=== PATIENT | female | born 1965 | race Caucasian/White ===

== ENCOUNTER 2016-09-09 13:52 | Emergency (ER) | payer OTHER ==
--- NOTE | 2016-09-09 14:43 | ED ---
Extremity Problem HPI - General Chief complaint: Extremity Problem,Nontraumatic Stated complaint: Dr Sent/Lump behind knee Time Seen by Provider: 09/09/16 14:10 Source: patient, RN notes reviewed Mode of arrival: ambulatory Limitations: no limitations - History of Present Illness Initial comments: 51-year-old female presents emergency Department chief complaint right leg pain. Patient states that she's had some discomfort on her right knee over the last few days. Patient states that she has a family history of DVTs though she' s had no DVT herself. Patient states that seems to worse when she walks and seems to throb. She states that she feels a lump. Denies any calf pain no chest pain or shortness breath. - Related Data Home Medications Medication Instructions Recorded Confirmed Aspirin EC [Ecotrin Low Dose] 81 mg PO HS 09/09/16 09/09/16 Estradiol Cream [Estrace Cream 1 gm VAGINAL MOTH 09/09/16 09/09/16 0.01%] Multivitamins, Thera [Multivitamin 1 tab PO DAILY 09/09/16 09/09/16 (formulary)] Allergies Allergy/AdvReac Type Severity Reaction Status Date / Time No Known Allergies Allergy Unverified 09/09/16 14:24 Review of Systems ROS Statement: Those systems with pertinent positive or pertinent negative responses have been documented in the HPI. ROS Other: All systems not noted in ROS Statement are negative. Past Medical History Past Medical History: No Reported History History of Any Multi-Drug Resistant Organisms: None Reported Additional Past Surgical History / Comment(s): left hand. carpal tunnel Past Psychological History: No Psychological Hx Reported Smoking Status: Former smoker Past Alcohol Use History: None Reported Past Drug Use History: None Reported General Exam Limitations: no limitations Respiratory exam: Present: normal lung sounds bilaterally. Absent: respiratory distress, wheezes, rales, rhonchi, stridor Cardiovascular Exam: Present: regular rate, normal rhythm, normal heart sounds. Absent: systolic murmur, diastolic murmur, rubs, gallop, clicks Extremities exam: Present: other (Right knee there is some swelling on the posterior aspect and the popliteal region there is minimal tenderness patient's full range of motion no laxity is no calf tenderness there is no erythema and pedal pulses are equal bilaterally +2) Course Vital Signs 09/09/16 09/09/16 14:02 14:30 Temperature 99.2 F 98.8 F Pulse Rate 86 79 Respiratory 20 17 Rate Blood Pressure 138/91 132/73 O2 Sat by Pulse 99 96 Oximetry Medical Decision Making - Medical Decision Making 51-year-old female presented for right leg pain. There is no evidence acute DVT or white cyst. Patient will be discharged at this time follow with PCP return parameters were discussed. Disposition Clinical Impression: Right leg pain Disposition: HOME SELF-CARE Condition: Stable Instructions: Leg Pain (ED) Additional Instructions: Please return to the Emergency Department if symptoms worsen or any other concerns. Referrals: Carmine Goncalves DO [Primary Care Provider] - 1-2 days Time of Disposition: 15:27
--- NOTE | 2016-09-09 15:49 | US ---
EXAMINATION TYPE: US venous doppler duplex LE RT DATE OF EXAM: 09/09/2016 2:54 PM COMPARISON: NONE CLINICAL HISTORY: 51-year-old female Pain, Lump behind right knee. SIDE PERFORMED: Right TECHNIQUE: The lower extremity deep venous system is examined utilizing real time linear array sonog dustin with graded compression, doppler sonography and color-flow sonography. FINDINGS: VESSELS IMAGED: External Iliac Vein (EIV) Common Femoral Vein Deep Femoral Vein Greater Saphenous Vein * Femoral Vein Popliteal Vein Small Saphenous Vein * Proximal Calf Veins (* superficial vessels) Right Leg: Negative for DVT No Madrigal's cyst or other discrete abnormality seen within the superficial soft tissues at posterior k nee, site of palpable lump. IMPRESSION: 1. No evidence for DVT within the right lower extremity imaged from the groin to the upper calf. 2. No Madrigal's cyst identified along the popliteal space at the site of patient's lump. If there is pe rsistence or enlargement of a palpable abnormality, further cross-sectional imaging may be warranted.
[2016-09-09 15:50] VITALS: BP 112/69; PULSE 83; RESP 20; TEMP 98.4
== END 2016-09-09 15:50 | disposition home or self-care (01) ==
LOC: EC 13:52
DX: M25.561 Pain in right knee (principal); M25.461 Effusion, right knee; Z87.891 Personal history of nicotine dependence; Z79.82 Long term (current) use of aspirin; Z79.3 Long term (current) use of hormonal contraceptives; Z79.899 Other long term (current) drug therapy; Z82.69 Family history of other diseases of the musculoskeletal system and connective tissue
CPT/HCPCS: 99283

== ENCOUNTER → 2017-12-17 | Outpatient (CLI) | payer OTHER ==
--- NOTE | 2018-01-19 11:51 | EM ---
EVENT MONITOR A 30-day event monitor. This study was performed between the date of December 17, 2017 until January 14, 2018. INDICATION OF THE STUDY: Palpitation. The patient was monitored for 4 weeks. The baseline rhythm appeared to be a sinus mechanism. During this 4 weeks of monitoring, the patient did have multiple episodes of paroxysmal atrial tachycardia. During these episodes, the patient was completely asymptomatic. There is no evidence of any ventricular tachycardia seen. There is no evidence of any sinus pause or sinus arrest seen. The patient did not report any symptoms as well. CONCLUSION: 1. This is a 4-week event monitor. 2. The baseline rhythm appeared to be a sinus rhythm. 3. The patient did have multiple episodes of paroxysmal atrial tachycardia. 4. During these episodes of paroxysmal atrial tachycardia, the patient was completely asymptomatic. MMODL / IJN: [id number] /
== END | disposition home or self-care (01) ==
LOC: RADECHMAIN 11:43
PROVIDERS: ATTEND Family Medicine
DX: I49.9 Cardiac arrhythmia, unspecified (principal)
CPT/HCPCS: 93270; 93271

== ENCOUNTER → 2018-02-10 | Outpatient (CLI) | payer OTHER ==
--- NOTE | 2018-02-10 13:40 | BD ---
EXAMINATION TYPE: Axial Bone Density DATE OF EXAM: 02/10/2018 COMPARISON: NONE CLINICAL HISTORY: 52 YR OLD FEMALE....ICD-10 CODE: Z78.0 POST MENOPAUSAL Height: 66 Weight: 221 FRAX RISK QUESTIONS: HX OF ADULT FRACTURE Secondary Osteoporosis: YES 3. Menopause before 45: YES AT AGE 28 Current Tobacco Use: STOPPED 10 YRS AGO RISK FACTORS HISTORY OF: HX OF LT RIB FXS AT 48 YRS OLD, AND BOTH ANKLE BREAKS IN HER 20s Family History of Osteoporosis: YES, HER FATHER Diet low in dairy products/other sources of calcium: YES Postmenopausal woman: YES AT AGE 28 YRS OLD Take estrogen and/or progesterone medications: IN PAST FOR 10 -15 YRS, LAST TAKEN 5 YRS AGO MEDICATIONS: Additional Medications: NOTHING TO NOTE Additional History: NOTHING TO NOTE EXAM MEASUREMENTS: Bone mineral densitometry was performed using the [employer] System. Bone mineral density as measured about the Lumbar spine is: ----- L1-L4(G/cm2): 1.465 T Score Values are as follows: ----- L1: 0.2 ----- L2: 1.1 ----- L3: 4.4 ----- L4: 3.2 ----- L1-L4: 2.4 Bone mineral density ....FIRST BONE DENSITY ....BASELINE STUDY Bone mineral density about the R hip (g/cm2): 1.035 Bone mineral density about the L hip (g/cm2): 1.043 T Score values are as follows: -----R Neck: -1.1 -----L Neck: -0.9 -----R Total: 0.2 -----L Total: 0.3 Bone mineral density BASELINE STUDY FRAX%s: THERE IS A 8.0% CHANCE FOR A MAJOR OSTEOPOROTIC FX AND A 0.4% FOR HIP.....PROBABILITY OF F X IN 10 YRS TIME IMPRESSION: Osteopenia (T Score between -2.5 and -1). There is slightly increased risk of fracture and the patient may be considered for treatment. Re-Screen 2-5 years. NOTE: T-SCORE=SD OF THE YOUNG ADULT MEAN.
--- NOTE | 2018-02-11 08:09 | MM ---
Reason for exam: screening (asymptomatic). Last mammogram was performed 2 years and 10 months ago. History: Patient is postmenopausal. Family history of breast cancer in maternal aunt. MG discontinued stereo core LT of the left breast, April 13, 2015. Taking estrogen for 10 years beginning at age 35. Physical Findings: A clinical breast exam by your physician is recommended on an annual basis and results should be correlated with mammographic findings. MG Screening Mammo w CAD Bilateral CC and MLO view(s) were taken. Prior study comparison: April 06, 2015, left breast MG 3d work up w/cad LT. April 04, 2015, bilateral MG screening mammo w CAD. There are scattered fibroglandular densities. There is no discrete abnormality. No significant changes when compared with prior studies. ASSESSMENT: Negative, BI-RAD 1 RECOMMENDATION: Routine screening mammogram of both breasts in 1 year.
== END ==
LOC: RADMAMWWP 09:20
PROVIDERS: ATTEND Family Medicine
DX: Z12.31 Encounter for screening mammogram for malignant neoplasm of breast (principal); M85.80 Other specified disorders of bone density and structure, unspecified site; Z78.0 Asymptomatic menopausal state
CPT/HCPCS: 77067; 77080

== ENCOUNTER → 2019-10-20 | Outpatient (CLI) | payer OTHER ==
--- NOTE | 2019-10-20 14:49 | EST ---
EXERCISE STRESS AGE: 54 SEX: F HT: 5'7" WT: 230 lbs. PROTOCOL: Ritesh STAGE: 3 DURATION OF EXERCISE: 9:16 HEART RATE REST: 59 BLOOD PRESSURE REST: 127/77 MAXIMUM HEART RATE ACHIEVED: 153 MAXIMUM BLOOD PRESSURE: 164/80 85% MPHR: 142 100% MPHR: 167 METS: 9.9 INDICATIONS: Hyperlipidemia, family history CLINICAL INFORMATION: @@ Baseline EKG shows sinus rhythm, normal axis, normal intervals. Patient exercised on Ritesh protocol for a total of 8 minutes achieving 9 METS, 92% of predicted maximal heart rate without chest pain. At peak exercise, there was 0.[address]-segment depression noted with occasional PVCs. CONCLUSION: 1. Above-average exercise tolerance. 2. Nondiagnostic EKG changes with exercise. 3. Occasional PVCs during exertion. MMODL / IJN: [id number] /
--- NOTE | 2019-10-21 11:37 | ECHOF ---
Referral Reason:E66.9 obesity/E85 hyperlipid MEASUREMENTS -------- HEIGHT: 171.4 cm WEIGHT: 104.3 kg BP: RVIDd: 3.0 cm (< 3.3) IVSd: 1.2 cm (0.6 - 1.1) LVIDd: 4.8 cm (3.9 - 5.3) LVPWd: 1.2 cm (0.6 - 1.1) IVSs: 1.8 cm LVIDs: 3.7 cm LVPWs: 1.6 cm LA Diam: 3.8 cm (2.7 - 3.8) LAESV Index (A-L): 22.85 ml/m Ao Diam: 3.5 cm (2.0 - 3.7) AV Cusp: 2.2 cm (1.5 - 2.6) MV EXCURSION: 10.412 mm (> 18.000) MV EF SLOPE: 53 mm/s (70 - 150) EPSS: 1.1 cm MV E Darek: 0.90 m/s MV DecT: 180 ms MV A Darek: 0.80 m/s MV E/A Ratio: 1.12 AR PHT: 2849 ms RAP: 5.00 mmHg RVSP: 26.73 mmHg FINDINGS -------- Sinus rhythm. This was a technically good study. The left ventricular size is normal. There is borderline concentric left ventricular hypertrophy. Overall left ventricular systolic function is normal with, an EF between 60 - 65 %. The right ventricle is normal in size. Normal LA size by volume 22+/-6 ml/m2. The right atrium is normal in size. Lipomatous Hypertrophy of the atrial septum is present Aortic valve is trileaflet and is mildly thickened. There is mild aortic regurgitation. The mitral valve is normal. Mild tricuspid regurgitation present. Right ventricular systolic pressure is normal at < 35 mmHg. CONCLUSIONS -------- 1. The left ventricular size is normal. 2. There is borderline concentric left ventricular hypertrophy. 3. Overall left ventricular systolic function is normal with, an EF between 60 - 65 %. 4. Lipomatous Hypertrophy of the atrial septum is present 5. Aortic valve is trileaflet and is mildly thickened. 6. There is mild aortic regurgitation. 7. Mild tricuspid regurgitation present. FULL STACK SOFTWARE DEVELOPER: Nhi Luis RDCS
== END | disposition home or self-care (01) ==
LOC: RADECHMAIN 08:33
PROVIDERS: ATTEND Family Medicine
DX: I08.2 Rheumatic disorders of both aortic and tricuspid valves (principal); Z82.49 Family history of ischemic heart disease and other diseases of the circulatory system
CPT/HCPCS: 93017; 93306

== ENCOUNTER → 2020-09-26 | Outpatient (CLI) | payer OTHER ==
--- NOTE | 2020-09-26 20:09 | XR ---
Right clavicle and right shoulder HISTORY: Trauma and pain 2 views of the right clavicle, 3 views of the right shoulder on 4 images There is arthropathy at the acromioclavicular joint. Bone mineralization, alignment are maintained. IMPRESSION: No fracture or dislocation of the right clavicle or shoulder.
--- NOTE | 2020-09-26 20:10 | XR ---
Lumbosacral spine HISTORY: Pain, trauma 5 views of lumbosacral spine There is a levoscoliosis centered at the mid lumbar spine. Lumbar vertebral bodies show preserved hei ght and bone mineralization. There is no evident spondylolysis. There is multilevel spondylosis. Mini mal retrolisthesis grade 1 L3-4, possibly L4-5. Loss of disc height is present at intervertebral leve ls with associated vacuum phenomenon greatest at L3-4 and L4-5. Sclerosis is present in the posterior elements of the lower lumbar spine. Atherosclerotic vascular calcifications present in the aortoilia c distribution. IMPRESSION: Degenerative disc disease and facet arthropathy. Mild spinal curvature, osteopenia.
== END | disposition home or self-care (01) ==
LOC: RADXRMAIN 15:16
PROVIDERS: ATTEND Family Medicine
DX: M25.511 Pain in right shoulder (principal); M54.2 Cervicalgia; M51.36 Other intervertebral disc degeneration, lumbar region; M85.80 Other specified disorders of bone density and structure, unspecified site
CPT/HCPCS: 72110

== ENCOUNTER → 2022-02-28 | Outpatient (CLI) | payer OTHER ==
--- NOTE | 2022-03-20 01:50 | EM ---
EVENT MONITOR 14-DAY EVENT MONITOR: Predominant rhythm appears to be sinus. There is a lot of artifact. There is a short run of 3 to 4 beats of PACs. No significant ventricular ectopy. No significant bradyarrhythmia. FINAL IMPRESSION: There was a lot of artifact. Predominant rhythm is sinus with 1 short run of PAT of about 3 to 4 beats. No ventricular ectopy and no bradyarrhythmia. MMCAL / JILLIANN: [id number] /
== END | disposition home or self-care (01) ==
LOC: RADECHMAIN 12:43
PROVIDERS: ATTEND Family Medicine
DX: R00.2 Palpitations (principal)
CPT/HCPCS: 93270

== ENCOUNTER → 2022-08-23 | Outpatient (CLI) | payer OTHER ==
--- NOTE | 2022-08-23 15:07 | CT ---
EXAMINATION TYPE: CT abdomen pelvis wo con DATE OF EXAM: 08/23/2022 COMPARISON: None HISTORY: 57-year-old female R14.0, Abdominal distension and pain, Hx endometrial tumor. CT DLP: 686.40 mGycm. Automated exposure control for dose reduction was used. TECHNIQUE: Contiguous axial scanning of the abdomen and pelvis without IV contrast. Coronal and sagit woodrow reconstructions performed. FINDINGS: LUNG BASES: No significant abnormality is appreciated. LIVER/GB: No significant abnormality is appreciated. PANCREAS: No significant abnormality is seen. SPLEEN: No significant abnormality is seen. ADRENALS: No significant abnormality is seen. KIDNEYS: No significant abnormality is seen. BOWEL: Small hiatal hernia. No dilated small bowel, free fluid, or free air. Appendix not seen. No se condary findings of acute appendicitis in the right lower quadrant. No significant stool burden. Oral contrast progressed into descending colon. Mild left-sided colonic diverticulosis. No pericolonic in flammatory change. LYMPH NODES: A few scattered nonenlarged retroperitoneal nodes measuring up to 9 mm are nonspecific. Otherwise, no significant abnormality is seen. OTHER: Nonspecific partially calcified 1.5 cm nodule along the lesser curvature of the stomach, proba matthew old post inflammatory sequela. Previous ventral abdominal wall mesh repair. PELVIS: Bladder urine distended. Uterus surgically absent. Left sided pelvic phlebolith. Neither ovar y is seen. No abnormal fluid collection in the pelvis. BONES: Mild degenerative change of the hips. Moderate to advanced degenerative disc disease L4-L5 and L3-L4. Facet arthropathy. Trace grade 1 retrolisthesis L3-L4 L4-L5. Degenerated levoconvex curvature is noted. IMPRESSION: 1. Status post hysterectomy and bilateral salpingo-oophorectomies. 2. Scattered left-sided colonic diverticulosis without evidence for acute diverticulitis. 3. Small hiatal hernia.
== END | disposition home or self-care (01) ==
LOC: RADCTMAIN 10:29
PROVIDERS: ATTEND Family Medicine
DX: K44.9 Diaphragmatic hernia without obstruction or gangrene (principal); K57.30 Diverticulosis of large intestine without perforation or abscess without bleeding; R14.0 Abdominal distension (gaseous); Z90.710 Acquired absence of both cervix and uterus
CPT/HCPCS: 74176

== ENCOUNTER → 2022-11-19 | Outpatient (CLI) | payer OTHER ==
--- NOTE | 2022-11-19 14:57 | XR ---
EXAMINATION TYPE: XR chest 2V DATE OF EXAM: 11/19/2022 COMPARISON: NONE TECHNIQUE: PA and lateral views submitted. HISTORY: Chest pain FINDINGS: The lungs are clear and there is no pneumothorax, pleural effusion, or focal pneumonia. Heart size normal and no overt failure. Osseous structures demonstrate hypertrophic and degenerative changes of the spine. Coarsened interstitium. IMPRESSION: 1. Coarsened interstitium could be on the basis of chronic interstitial lung disease or bronchitis\in terstitial pneumonitis. Correlate clinically.
== END | disposition home or self-care (01) ==
LOC: RADXRMAIN 13:45
PROVIDERS: ATTEND Family Medicine
DX: R07.9 Chest pain, unspecified (principal)
CPT/HCPCS: 71046